=== PATIENT | female | born 1985 | race Caucasian/White ===

== ENCOUNTER 2020-12-17 15:08 | Outpatient (CLI) | payer BC | END 2020-12-17 15:09 | disposition home or self-care (01) | LOC: BICRAD 15:08 | PROVIDERS: ATTEND Chiropractor | DX: M79.645 Pain in left finger(s) (principal) ==

== ENCOUNTER 2021-02-10 10:53 | Outpatient (CLI) | payer BC | END 2021-02-10 10:54 | disposition home or self-care (01) | LOC: MRI 10:53 | PROVIDERS: ATTEND Chiropractor | DX: M79.645 Pain in left finger(s) (principal) ==

== ENCOUNTER 2021-04-07 09:48 | Outpatient (CLI) | payer BC | END 2021-04-07 09:49 | disposition home or self-care (01) | LOC: BICULT 09:48 | PROVIDERS: ATTEND Family Medicine | DX: N94.6 Dysmenorrhea, unspecified (principal); N83.201 Unspecified ovarian cyst, right side | CPT/HCPCS: 76856 ==